=== PATIENT | female | born 1940 | race Caucasian/White ===

== ENCOUNTER 2019-10-06 15:11 | Emergency (ER) | payer MEDICARE, OTHER ==
[~2019-10-06 15:11] MED LIST: Iopamidol 370 76% 100 ML VIAL ONE
[2019-10-06 16:05] LABS: #Basophils 0.1 thou/uL (0.0-0.2); #Eosinphils 0.1 thou/uL (0.0-0.7); #Lymphocytes 2.4 thou/uL (1.20-3.40); #Monocytes 0.5 thou/uL (0.11-0.59); #Neutrophils 3.9 thou/uL (1.40-6.50); %Basophils 1.6 % (0.0-1.0); %Eosinophils 1.5 % (0.0-10.0); %Lymphocytes 34.1 % (21.0-51.0); %Monocytes 6.9 % (0.0-10.0); %Neutrophils 55.8 % (42.0-75.0); Hemoglobin 13.3 g/dL (12.0-16.0); Mean Corpuscular HGB CONC 33.1 g/dL (32.0-36.0); Mean Corpuscular Hemoglobin 30.9 pg (27.0-31.0); Mean Corpuscular Volume 93.3 fL (78.0-98.0); Mean Platelet Volume 8.5 fL (7.4-10.4); Platelet Count 169 thou/uL (130-400); Prothrombin Time 13.4 SEC (12.0-14.7)
--- NOTE | 2019-10-06 16:05 | ULT ---
LEFT LOWER EXTREMITY DOPPLER VENOUS ULTRASOUND PROVIDED CLINICAL HISTORY: Left leg swelling and hemoptysis TECHNIQUE: Grayscale and color Doppler sonography with spectral analysis was performed of the left common femora l, femoral, popliteal, posterior tibial, greater saphenous and profunda femoral veins. FINDINGS: There is normal compression, flow and augmentation seen within the deep venous structures o f the left lower extremity. IMPRESSION: No sonographic evidence for left lower extremity deep venous thrombosis.
[2019-10-06 16:07] LABS: D-Dimer Test 1.66 *mcg/mL (0.27-0.43)
--- NOTE | 2019-10-06 16:09 | RAD ---
EXAM: Chest Two Views 10/06/2019 4:06 PM HISTORY: Hemoptysis COMPARISON: Prior exam dated January 10, 2018 FINDINGS: Heart: Upper limits of normal. Pulmonary vessels: Normal. Costophrenic angles: Clear. Lungs: Stable emphysema Pneumothorax: None. Osseous structures:Intact. Additional findings: Stable small hiatal hernia. IMPRESSION: Stable emphysema. No acute intrathoracic disease demonstrated.
[2019-10-06 16:36] LABS: Anion Gap 14 mmol/L (10-20); BUN (Urea Nitrogen) 15 mg/dL (9.8-20.1); Calc. Creatinine Clearance 0 mL/min (70-130); Calcium 9.7 mg/dL (7.8-10.44); Carbon Dioxide 28 mmol/L (23-31); Chloride 101 mmol/L (98-107); Estimated GFR-MDRD 64; Glucose 103 mg/dL (83-110); Sodium 139 mmol/L (136-145)
--- NOTE | 2019-10-06 17:30 | CT ---
EXAM: CTA of the chest HISTORY: Hemoptysis and dry cough for 6 months COMPARISON: None TECHNIQUE: Multiple contiguous axial images were obtained a CTA of the chest with contrast per pulmon josias embolism protocol. 3-D oblique MIP reformats and direct coronal reformats were performed. FINDINGS: HEART: Normal in size without focal cardiac abnormality. PULMONARY ARTERIES: Normal in caliber without filling defects to suggest pulmonary emboli. MEDIASTINUM: No hilar or mediastinal lymphadenopathy. Large hiatal hernia. LUNGS: There is a 2.3 cm area of consolidation in the right middle lobe with central cavitation. Ther e are areas of peripheral nodularity in a tree-in-bud configuration in the right upper lobe and superior aspect of the right lower lobe. There are areas of groundglass attenuation in the posterior aspect of the left lower lobe. PLEURAL SPACE: No pleural effusion or pneumothorax. CHEST WALL SOFT TISSUES: Unremarkable VISUALIZED OSSEOUS STRUCTURES: Degenerative changes in the spine. VISUALIZED SUBDIAPHRAGMATIC STRUCTURES: Unremarkable IMPRESSION: 1. No evidence of pulmonary thromboembolism 2. Multifocal pulmonary opacities. These may represent an infectious or malignant process but an infe ctious process is favored. This could be secondary to recurrent aspiration as the patient has a very large hiatal hernia.
== END 2019-10-06 18:06 | disposition home or self-care (01) ==
LOC: SCSER 15:11
DX: J18.9 Pneumonia, unspecified organism (principal); R04.2 Hemoptysis; K21.9 Gastro-esophageal reflux disease without esophagitis
CPT/HCPCS: 71046; 71275; 80048; 83880; 85025; 85379; 85610; Q9967

== ENCOUNTER 2020-01-12 11:57 | Outpatient (CLI) | payer MEDICARE, OTHER ==
--- NOTE | 2020-01-12 12:14 | RAD ---
EXAM: Chest 2 views: HISTORY: Dyspnea COMPARISON: None. FINDINGS: There is a normal-sized cardiomediastinal silhouette. There is no evidence of consolidation, mass, or pleural effusion. Degenerative changes are seen in the spine. IMPRESSION: No evidence of acute cardiopulmonary disease
== END 2020-01-12 11:58 | disposition home or self-care (01) ==
LOC: RAD 11:57
PROVIDERS: ATTEND Internal Medicine Pulmonary Disease
DX: R06.00 Dyspnea, unspecified (principal)
CPT/HCPCS: 71046

== ENCOUNTER 2021-09-28 09:23 | Outpatient (CLI) | payer MEDICARE, OTHER | END 2021-09-28 09:24 | disposition home or self-care (01) | LOC: RAD 09:23 | PROVIDERS: ATTEND Internal Medicine Pulmonary Disease | DX: R06.00 Dyspnea, unspecified (principal); J44.9 Chronic obstructive pulmonary disease, unspecified; K44.9 Diaphragmatic hernia without obstruction or gangrene | CPT/HCPCS: 71046 ==

== ENCOUNTER 2023-06-03 08:49 | Outpatient (CLI) | payer MEDICARE, OTHER | END 2023-06-03 08:50 | disposition home or self-care (01) | LOC: RAD 08:49 | PROVIDERS: ATTEND Internal Medicine Critical Care Medicine | DX: R06.00 Dyspnea, unspecified (principal) | CPT/HCPCS: 71046 ==

== ENCOUNTER 2024-06-02 09:13 | Outpatient (CLI) | payer MEDICARE, OTHER | END 2024-06-02 09:14 | disposition home or self-care (01) | LOC: RAD 09:13 | PROVIDERS: ATTEND Internal Medicine Critical Care Medicine | DX: R06.00 Dyspnea, unspecified (principal); K44.9 Diaphragmatic hernia without obstruction or gangrene | CPT/HCPCS: 71046 ==

== ENCOUNTER 2025-08-31 08:47 | Outpatient (CLI) | payer MEDICARE, OTHER | END 2025-08-31 08:48 | disposition home or self-care (01) | LOC: RAD 08:47 | PROVIDERS: ATTEND Internal Medicine Critical Care Medicine | DX: R06.00 Dyspnea, unspecified (principal); J43.9 Emphysema, unspecified; K44.9 Diaphragmatic hernia without obstruction or gangrene | CPT/HCPCS: 71046 ==